=== PATIENT | female | born 1950 | race Caucasian/White ===

== ENCOUNTER 2020-08-17 21:32 | Emergency (ER) | payer MEDICARE, OTHER ==
[~2020-08-17] VITALS: Ht 162.6 cm; Wt 65.0 kg
[2020-08-17 21:49] VITALS: BP 165/68
[2020-08-17 22:23] LABS: BASO % 0 % (0-3); EOS % 0 % (0-3); HEMOGLOBIN 11.5 g/dL (12.0-15.5); LYMPH # 0.9 x10^3/uL (1.0-4.8); LYMPH % 9 % (24-48); MEAN CORPUSCULAR HEMOGLOBIN 30 pg (25-35); MEAN CORPUSCULAR HGB CONC 33 g/dL (31-37); MEAN CORPUSCULAR VOLUME 90 fL (79-100); MONO # 0.9 x10^3/uL (0.0-1.1); MONO % 9 % (0-9); NEUT # 8.3 x10^3uL (1.8-7.7); NEUT % 83 % (31-73); PLATELET COUNT 183 x10^3/uL (140-400); RED CELL DISTRIBUTION WIDTH 13.4 % (11.5-14.5); WHITE BLOOD COUNT 10.1 x10^3/uL (4.0-11.0)
--- NOTE | 2020-08-17 22:28 | RAD ---
Exam: CT of abdomen and pelvis without contrast INDICATION: Left flank pain TECHNIQUE: Sequential axial images through the abdomen and pelvis obtained without IV contrast. Sagit sandra and coronal reformatted images were reconstructed from the axial data and reviewed. Comparisons: None FINDINGS: Heart size is normal. No pericardial effusion. Visualized lung bases are clear. No pleural effusion. Liver, spleen, pancreas, and adrenals are unremarkable. Gallbladder is surgically absent. There is moderate left-sided hydronephrosis. There is a 6 mm calculus at the proximal left ureter. No other renal or ureteral calculi are identified. Bladder is decompressed not well evaluated. Uterus is not enlarged. No abnormal adnexal mass. Diverti culosis noted at the sigmoid colon without evidence of acute diverticulitis. Remainder large and smal l bowel are unremarkable. No free intra-abdominal air or fluid. No obstruction. Abdominal aorta has a normal course and caliber. No enlarged intra-abdominal lymph nodes are identified. No suspicious osseous lesions or acute fractures. IMPRESSION: 1. A 6 mm calculus at the distal left ureter with moderate left hydronephrosis. 2. No other renal or ureteral calculi. Exposure: One or more of the following in the visualized dose reduction techniques were utilized for this examination: 1. Automated exposure control 2. Adjustment of the MA and/or KV according to patient size 3. Use of iterative of reconstructive technique Electronically signed by: Mulu Rios MD (08/17/2020 10:26 PM) [facility]
[2020-08-17 22:33] LABS: CALCIUM 9.2 mg/dL (8.5-10.1); CREATININE 1.9 mg/dL (0.6-1.0); GFR 26.3; POTASSIUM 3.3 mmol/L (3.5-5.1)
[2020-08-17 22:37] LABS: CLARITY,URINE HAZY; COLOR,URINE YELLOW
[2020-08-17 22:38] LABS: BACTERIA,URINE 0 /HPF (0-FEW); BILIRUBIN,URINE SMALL (NEG); GLUCOSE,URINE 250 mg/dL (NEG); NITRITE,URINE NEG (NEG); SQUAMOUS EPITHELIAL CELL,UR MANY /LPF; UROBILINOGEN,URINE 0.2 mg/dL (0.2 mg/dL)
[2020-08-17] MEDS ORDERED: KETOROLAC 15 MG/ML VIAL. IVP ONE (22:45)
[2020-08-17] MEDS ORDERED: IV NORMAL SALINE 1,000ML 1,000 ML IV ONE (22:45)
[2020-08-17] MEDS ORDERED: TAMS0.4C97 PO (22:50)
--- NOTE | 2020-08-17 22:51 | PHYS DOC ---
Past History Past Medical History: Cancer, Kidney Stones, Renal Failure, Other Additional Past Medical Histor: BREAST CANCER Past Surgical History: Cholecystectomy, Other Additional Past Surgical Histo: BX MASECTOMY Alcohol Use: Occasionally Adult General Chief Complaint Chief Complaint: FLANK PAIN [facility] HPI Patient is a 69yo female presenting for flank pain. Onset was ~5 days ago without known inciting event, trauma or ingestion. Reports left sided flank pain that "sometimes" radiates to left groin/pubic region. Nothing known makes better or worse. She saw PCP 2 days prior and was evaluated, she was found to have an HEMA (Cr 0.8-->1.8) and was advised to come to ER for evaluation of kidney stone. She presents today, 2 days later for this evaluation. Pain has been intermittent but becoming more constant. She is still urinating without issues, no hematuria noted, no fever. She has distant history of kidney stones, none of which required aggressive urology intervention in order to pass Review of Systems Review of Systems Fourteen body systems of review of systems have been reviewed. See HPI for pertinent positives and negative responses, other mcmillan all other systems are negative, non-pertinent or non-contributory Current Medications Current Medications Current Medications Medications (Trade) Dose Ordered Sig/Dylan Start Time Stop Time Status Last Admin Dose Admin Ketorolac Tromethamine (Toradol 15mg Vial) 15 mg 1X ONCE 08/17/20 22:45 08/17/20 22:46 UNV Sodium Chloride 1,000 ml @ 1,000 mls/hr 1X ONCE 08/17/20 22:45 08/17/20 23:44 UNV Allergies Allergies Allergies Coded Allergies Type Severity Reaction Last Updated Verified latex Adverse Reaction Unknown 08/17/20 Yes Physical Exam Physical Exam Constitutional: Well developed, well nourished, no acute distress, non-toxic appearance. HENT: Normocephalic, atraumatic, bilateral external ears normal, oropharynx m oist, no oral exudates, nose normal. Eyes: PERRLA, EOMI, conjunctiva normal, no discharge. Neck: Normal range of motion, no tenderness, supple, no stridor. Cardiovascular: Heart rate regular, sinus rhythm, no murmurs rubs or gallops Lungs & Thorax: Bilateral breath sounds clear to auscultation Abdomen: Bowel sounds normal, soft, no tenderness, no masses, no pulsatile masses. Nonsurgical abdomen, no peritoneal signs Skin: Warm, dry, no erythema, no rash. Back: No tenderness, no CVA tenderness. Extremities: No tenderness, no cyanosis, no clubbing, ROM intact, no edema. Neurologic: Alert and oriented X 3, grossly normal motor & sensory function, no focal deficits noted. Psychologic: Affect normal, judgement normal, mood normal. Current Patient Data Vital Signs Vital Signs Date Time Temp Pulse Resp B/P (MAP) Pulse Ox O2 Delivery O2 Flow Rate FiO2 08/17/20 21:49 98.6 89 18 165/68 (100) 96 Room Air Lab Results Laboratory Tests Test 08/17/20 21:40 08/17/20 22:01 Urine Collection Type Unknown Urine Color Yellow Urine Clarity Hazy Urine pH 5.0 Urine Specific Chester >=1.030 Urine Protein Trace (NEG-TRACE) Urine Glucose (UA) 250 mg/dL (NEG) Urine Ketones (Stick) Neg mg/dL (NEG) Urine Blood Large (NEG) Urine Nitrite Neg (NEG) Urine Bilirubin Small (NEG) Urine Urobilinogen Dipstick 0.2 mg/dL (0.2 mg/dL) Urine Leukocyte Esterase Trace (NEG) Urine RBC 11-20 /HPF (0-2) Urine WBC 5-10 /HPF (0-4) Urine Squamous Epithelial Cells Many /LPF Urine Bacteria 0 /HPF (0-FEW) White Blood Count 10.1 x10^3/uL (4.0-11.0) Red Blood Count 3.90 x10^6/uL (3.50-5.40) Hemoglobin 11.5 g/dL (12.0-15.5) L Hematocrit 35.0 % (36.0-47.0) L Mean Corpuscular Volume 90 fL (79-100) Mean Corpuscular Hemoglobin 30 pg (25-35) Mean Corpuscular Hemoglobin Concent 33 g/dL (31-37) Red Cell Distribution Width 13.4 % (11.5-14.5) Platelet Count 183 x10^3/uL (140-400) Neutrophils (%) (Auto) 83 % (31-73) H Lymphocytes (%) (Auto) 9 % (24-48) L Monocytes (%) (Auto) 9 % (0-9) Eosinophils (%) (Auto) 0 % (0-3) Basophils (%) (Auto) 0 % (0-3) Neutrophils # (Auto) 8.3 x10^3uL (1.8-7.7) H Lymphocytes # (Auto) 0.9 x10^3/uL (1.0-4.8) L Monocytes # (Auto) 0.9 x10^3/uL (0.0-1.1) Eosinophils # (Auto) 0.0 x10^3/uL (0.0-0.7) Basophils # (Auto) 0.0 x10^3/uL (0.0-0.2) Sodium Level 140 mmol/L (136-145) Potassium Level 3.3 mmol/L (3.5-5.1) L Chloride Level 102 mmol/L (98-107) Carbon Dioxide Level 28 mmol/L (21-32) Anion Gap 10 (6-14) Blood Urea Nitrogen 17 mg/dL (7-20) Creatinine 1.9 mg/dL (0.6-1.0) H Estimated GFR (Cockcroft-Gault) 26.3 Glucose Level 205 mg/dL (70-99) H Calcium Level 9.2 mg/dL (8.5-10.1) EKG EKG [] Radiology/Procedures Radiology/Procedures Exam: CT of abdomen and pelvis without contrast INDICATION: Left flank pain TECHNIQUE: Sequential axial images through the abdomen and pelvis obtained without IV contrast. Sagittal and coronal reformatted images were reconstructed from the axial data and reviewed. Comparisons: None FINDINGS: Heart size is normal. No pericardial effusion. Visualized lung bases are clear. No pleural effusion. Liver, spleen, pancreas, and adrenals are unremarkable. Gallbladder is surgically absent. There is moderate left-sided hydronephrosis. There is a 6 mm calculus at the proximal left ureter. No other renal or ureteral calculi are identified. Bladder is decompressed not well evaluated. Uterus is not enlarged. No abnormal adnexal mass. Diverticulosis noted at the sigmoid colon without evidence of acute diverticulitis. Remainder large and small bowel are unremarkable. No free intra-abdominal air or fluid. No obstruction. Abdominal aorta has a normal course and caliber. No enlarged intra-abdominal lymph nodes are identified. No suspicious osseous lesions or acute fractures. IMPRESSION: 1. A 6 mm calculus at the distal left ureter with moderate left hydronephrosis. 2. No other renal or ureteral calculi. Heart Score C/O Chest Pain: No Risk Factors: Risk Factors: DM, Current or recent (<one month) smoker, HTN, HLP, family history of CAD, obesity. Risk Scores: Risk Factors: DM, Current or recent (<one month) smoker, HTN, HLP, family history of CAD, obesity. Course & Med Decision Making Course & Med Decision Making Hypertensive otherwise hemodynamically stable with HPI and PE concerning for kidney stone. ER workup significant for 6mm left-sided stone and HEMA Patient responded to IV toradol and 1L NS IVF rehydration. I recommended admission for continued rehydration, pain control and monitoring of urine to ensure passage but patient declined She opted to go home with previously RX antibiotics, flomax, pain meds and strainer and continue good PO intake with PCP follow-up this upcoming Thursday. I advised she might need Urologist referral if this does not resolve I did disclose that worsening kidney function (0.8-->1.8 2 days ago and 1.9 today) was concerning and that left untreated/addressed could progress to worse monico and possibly permanent renal damage Strict return precautions discussed with good understanding, all questions and concerns addressed prior to ER departure Dragon Disclaimer Dragon Disclaimer This electronic medical record was generated, in whole or in part, using a voice recognition dictation system. Departure Departure: Impression: Primary Impression: Left renal stone Additional Impression: HEMA (acute kidney injury) Disposition: 01 DC HOME SELF CARE/HOMELESS Condition: IMPROVED Referrals: HERNAN AVITIA MD (PCP) Patient Instructions: Diet for Kidney Stones, Kidney Stones Additional Instructions: You were seen for flank pain and bloody urine. You have a 6 mm kidney stone on your left side likely causing all of this. Given the size, this will likely pass. You were previously prescribed pain medication, Flomax to help excrete stone, and antibiotics by your primary care physician, please continue these and take as prescribed to completion. You were also given Toradol which is a medication for renal colic. We discussed your diagnosis of acute kidney injury and you were given 1 L IV fluid while in the ER. I recommended hospital admission for continued IV fluid rehydration but you chose to go home for continued rehydration and close outpatient follow-up, please ensure generous water intake. You will need to follow-up with your primary care physician Ivan this upcoming week for repeat evaluation and laboratory analysis. You will need to strain your urine daily to see if you pass the stone. There might be an indication for urology consultation in outpatient setting and/or need for hospitalization for continued IV fluid rehydration and potentially urology consultation if your symptoms persist or worsen. You should return to the ED if you develop worsening pain, fever, continued bloody urine, lightheadedness, shortness of breath, chest pain, or any other new or concerning symptoms. Scripts Tamsulosin Hcl (FLOMAX) 0.4 Mg Cap.er.24h 1 CAP PO DAILY for KIDNEY STONE, #30 CAP 11 Refills Prov: CHUYITA ANDREA DO 08/17/20 Problem Qualifiers CHUYITA ANDREA DO Aug 17, 2020 22:51
[2020-08-17] MEDS ORDERED: TAMSULOSIN 0.4 MG CAP.ER.24H. PO ONE (23:00)
== END 2020-08-18 00:01 | disposition home or self-care (01) ==
LOC: ER 21:32
DX: N17.9 Acute kidney failure, unspecified (principal); N13.2 Hydronephrosis with renal and ureteral calculous obstruction; Z87.442 Personal history of urinary calculi; Z90.49 Acquired absence of other specified parts of digestive tract; Z91.040 Latex allergy status
CPT/HCPCS: 36415; 74176; 80048; 81001; 85025; 87086; 96361; 96374; 99284; J1885; J7030